=== PATIENT | male | born 1985 | race Caucasian/White ===

== ENCOUNTER → 2024-07-13 11:21 | Outpatient (CLI) | payer OTHER, SELFPAY ==
--- NOTE | 2024-07-13 11:24 | DI.MRI.S_ITS ---
PROCEDURE: MR SHOULDER LT WO CON INDICATIONS: PAIN IN LEFT SHOULDER TECHNIQUE: Noncontrast oblique coronal T2 fast spin echo with fat saturation, oblique sagittal T1 spin echo and T2 fast spin echo with fat saturation, axial T1 spin echo and T2 fast spin echo with fat saturation through the shoulder. COMPARISON: [facility], MR, MR SHOULDER LEFT WITHOUT CONTRAST, 10/11/2023, 8:33. FINDINGS: Image quality: Excellent. Rotator cuff: In the supraspinatus, there is high-grade interstitial tear at the most anteriora footprint (series 8, image 8), unchanged from prior exam. Additional mild tendinosis of the supraspinatus. The infraspinatus is unremarkable. Previously seen delaminating cysts within the supraspinatus has resolved. The teres minor is unremarkable . mild tendinosis of the subscapularis, with low-grade interstitial tear.. No muscle edema or fatty atrophy. Bones and bursae: Mild degenerative changes of the acromioclavicular joint. Type 1 acromion. No os acromial. Mild subacromial/subdeltoid bursitis. Mild subchondral cystic changes at the posterior greater tuberosity, favor reactive. No acute fracture. No focal chondral defect at the glenohumeral joint. Capsule and soft tissues: Anterior superior labral tear. The extra-articular biceps tendon is unremarkable. The intra-articular biceps tendon is intact. No significant glenohumeral effusion. Minimal subcoracoid bursitis. IMPRESSION: 1. Mild degenerative changes of the acromioclavicular joint, unchanged from prior exam. 2. Focal high-grade interstitial tear at the most anterior footprint of the supraspinatus, unchanged. Previously seen delaminating cyst within the supraspinatus has resolved. 3. Low-grade interstitial tear of the subscapularis, unchanged. 4. Anterior superior labral tear. Dictated by: Tricia Pierson M.D. on 07/13/2024 at 17:37 Approved by: Tricia Pierson M.D. on 07/13/2024 at 17:50
== END ==
DX: M75.112 Incomplete rotator cuff tear or rupture of left shoulder, not specified as traumatic (principal); S43.432A Superior glenoid labrum lesion of left shoulder, initial encounter; M25.512 Pain in left shoulder
CPT/HCPCS: 73221

== ENCOUNTER 2024-10-26 14:14 | Emergency (ER) | payer OTHER, SELFPAY ==
[2024-10-26 14:21] VITALS: BP 111/67; PULSE 62; RESP 16; TEMP 36.6; O2SAT 98; BMI 23.0
== END 2024-10-26 16:43 | disposition left against medical advice (07) ==
PROVIDERS: Emergency Provider Student in an Organized Health Care Education/Training Program
CPT/HCPCS: 99281

== ENCOUNTER → 2025-01-16 09:07 | Outpatient (CLI) | payer OTHER, SELFPAY ==
--- NOTE | 2025-01-16 09:09 | DI.MRI.S_ITS ---
PROCEDURE: MR SHOULDER LT WO CON INDICATIONS: STRAIN OF MUSCLE TENDON ROTATOR CUFF TECHNIQUE: Noncontrast oblique coronal T2 fast spin echo with fat saturation, oblique sagittal T1 spin echo and T2 fast spin echo with fat saturation, axial T1 spin echo and T2 fast spin echo with fat saturation through the shoulder. COMPARISON: [facility], MR, MR SHOULDER LT WO CON, 07/13/2024, 11:28. FINDINGS: Image quality: Diagnostic Rotator cuff: Bulk: No significant atrophy Teres minor: Intact Supraspinatus: Worsened interstitial tear of the mid supraspinatus tendon, high-grade. Articular surface defect at the footplate with underlying ganglion cysts at the greater tuberosity with edema, increased Infraspinatus: Hoax-[id number]-[id number] background tendinopathy Subscapularis: Mild interstitial defects and background tendinopathy. This is similar. Bones and bursae: GH joint: Mild arthrosis. AC joint: [id number] arthrosis again seen Humeral head: No acute fracture. Scapula and acromion: No acute fracture Bursa: Moderate bursal edema, slightly increased Capsule: Labrum: Small superior anterior labral tear again seen Long head biceps tendon: Tear extends partially to the biceps anchor, there is background tendinopathy IGHL: Intact Rotator interval: Preserved fat signal Soft tissues: No axillary adenopathy. Lungs are not well seen. IMPRESSION: Worsened high-grade interstitial tear in the mid supraspinatus tendon. Articular surface defect at the footplate with underlying ganglion cysts and edema, also slightly increased. Mild similar interstitial defect of the subscapularis. Background tendinopathy of the infraspinatus and subscapularis. Anterior superior labral tear again seen, similar. The tear extends partially to the biceps anchor. Mild glenohumeral and [id number] acromioclavicular arthrosis. Moderate bursal edema, increased. Dictated by: Max Jamil M.D. on 01/17/2025 at 9:58 Approved by: Max Jamil M.D. on 01/17/2025 at 10:06
== END ==
PROVIDERS: PCP Student in an Organized Health Care Education/Training Program
DX: S46.012A Strain of muscle(s) and tendon(s) of the rotator cuff of left shoulder, initial encounter (principal); M19.012 Primary osteoarthritis, left shoulder; S43.432A Superior glenoid labrum lesion of left shoulder, initial encounter; M67.412 Ganglion, left shoulder; M25.412 Effusion, left shoulder; X58.XXXA Exposure to other specified factors, initial encounter
CPT/HCPCS: 73221